=== PATIENT | male | born 2000 | race Caucasian/White ===

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

== ENCOUNTER 2018-08-09 20:41 | Emergency (ER) | payer OTHER ==
[~2018-08-09] VITALS: Ht 160 cm; Wt 56.8 kg
[~2018-08-09 20:41] MED LIST changes: +PERCOCET 5/325M1 TAB PO
[2018-08-09 21:03] VITALS: BP 118/66
== END 2018-08-09 21:03 | disposition home or self-care (01) | DRG 605 ==
LOC: ED 20:41
PROC: 0HQ0XZZ Repair Scalp Skin, External Approach (ICD-10-PCS; principal; 2018-08-09)
DX: S01.01XA Laceration without foreign body of scalp, initial encounter (principal); W03.XXXA Other fall on same level due to collision with another person, initial encounter; Y93.83 Activity, rough housing and horseplay; Y92.009 Unspecified place in unspecified non-institutional (private) residence as the place of occurrence of the external cause

== ENCOUNTER 2018-08-18 13:21 | Emergency (ER) | payer SELFPAY ==
[~2018-08-18] VITALS: Ht 160 cm; Wt 54.5 kg
[2018-08-18 13:45] VITALS: BP 111/66
== END 2018-08-18 13:45 | disposition home or self-care (01) | DRG 950 ==
LOC: ED 13:21
DX: S01.01XD Laceration without foreign body of scalp, subsequent encounter (principal); X58.XXXD Exposure to other specified factors, subsequent encounter; F17.210 Nicotine dependence, cigarettes, uncomplicated

== ENCOUNTER 2018-10-30 15:13 | Emergency (ER) | payer SELFPAY ==
[~2018-10-30] VITALS: Ht 160 cm; Wt 56.8 kg
[2018-10-30] MEDS ORDERED: AMOXICILLIN500 M2 PO (16:34)
[2018-10-30] MEDS ORDERED: ONDANSETRON4 MG PO (16:34)
[2018-10-30 16:42] VITALS: BP 128/66
== END 2018-10-30 16:49 | disposition home or self-care (01) | DRG 153 ==
LOC: ED 15:13
DX: J02.0 Streptococcal pharyngitis (principal); F17.200 Nicotine dependence, unspecified, uncomplicated
CPT/HCPCS: J0131